=== PATIENT | male | born 1955 | race Hispanic/Latino ===

== ENCOUNTER 2019-12-23 20:02 | Emergency (ER) | payer OTHER ==
[2019-12-23 20:54] LABS: Urine Blood 3+ (NEG); Urine Glucose NEGATIVE (NEG); Urine Protein 1+ (NEG); Urine Specific Gravity 1.015 (1.005-1.030)
--- NOTE | 2019-12-23 21:23 | RAD REPORT ---
EXAM DESCRIPTION: CT - Stone Protocol - 12/23/2019 9:00 pm CLINICAL HISTORY: HEMATURIA COMPARISON: No comparisons TECHNIQUE: Axial 5 mm thick images were obtained without oral or IV contrast. The [id number] span s the entirety of the system including uppermost abdomen and lung bases. All CT scans are performed using dose optimization technique as appropriate and may include automated exposure control or mA/KV adjustment according to patient size. FINDINGS: No hydronephrosis is present and no obstructing ureteral calculi. No suspicious renal mass es. Isodense masses and pyelonephritis are not excluded on a stone protocol CT scan. No significant a drenal finding. Bladder is only partially filled. Irregular lobulated prostate gland is present proje cting into the bladder base. This could be a potential source for hematuria. Tri grown region of a bl adder has a slightly thickened or nodular appearance. Imaged portions of the liver, spleen and pancreas show no suspicious findings on non-contrast imaging . Gallbladder is absent. No biliary tree abnormality. No suspicious bowel findings. Appendix is normal. No active GI process identifiable. No mass or bulky lymphadenopathy. A small fat only umbilical hernia present. Fat filled left inguinal hernia is present. No free air, free fluid or inflammatory stranding. No significant bony abnormality. IMPRESSION: No hydronephrosis, obstructing calculus or acute renal or ureteral finding. Irregular lobulated prostate gland projecting into the bladder base. Trigone region of the bladder wood s a thickened nodular appearance due to the prostate gland. Correlation is needed with PSA values. No acute GI finding. Isodense masses and pyelonephritis are not excluded on stone protocol technique.
[2019-12-23 21:25] LABS: Urine Bacteria <20 /HPF (NONE SEEN); Urine RBC >50 /HPF (NONE SEEN)
[2019-12-23 21:26] LABS: Urine Culture Reflex Order NOT NEEDED
[2019-12-23 21:35] LABS: Absolute Lymphocytes (CBC) 1.7 K/uL (0.7-4.9); Basophils % 0.6 % (0-1.3); Lymphocytes % 25.5 % (15.3-44.8); MPV 9.2 fL (7.6-11.3); RBC Red Blood Cell Count 4.49 M/uL (4.33-5.43)
[2019-12-23 21:43] LABS: Potassium 4.2 mmol/L (3.5-5.1)
--- NOTE | 2019-12-23 21:49 | ER ---
Nurse's Notes [facility] [place] Name: Sanjeev Agee Age: 64 yrs Sex: Male : 1955 Arrival Date: 12/23/2019 Time: 20:04 Bed 6 Private MD: Diagnosis: Hematuria Presentation: 12/22 20:08 Chief complaint: Patient states: noticed blood in urine at around 4:00 pm this afternoon. Pt states Hx of enlarged prostate and bladder infection. Pt denies any pain or fever. Coronavirus screen: Client indicates they have traveled out of the [place] in the last 14 days. Client traveled to: [place] At this time, the client does not indicate any symptoms associated with coronavirus-19. Ebola Screen: Patient negative for fever greater than or equal to 101.5 degrees Fahrenheit, and additional compatible Ebola Virus Disease symptoms Patient denies exposure to infectious person. Initial Sepsis Screen: Does the patient meet any 2 criteria? No. Patient's initial sepsis screen is negative. Does the patient have a suspected source of infection? Yes: Other: blood in urine. Risk Assessment: Do you want to hurt yourself or someone else? Patient reports no desire to harm self or others. Onset of symptoms was December 23, 2019. 20:08 Method Of Arrival: Ambulatory 20:08 Acuity: ALEM 3 Historical: - Allergies: 20:14 No Known Allergies; - Home Meds: 20:14 Unable to obtain [Active]; - PMHx: 20:14 Bladder Infection; Prostate Enlargement; High Cholesterol; Hypertension; GERD; - PSHx: 20:14 Cholecystectomy; - Immunization history:: Adult Immunizations up to date. - Social history:: Smoking status: Patient/guardian denies using alcohol, street drugs. Screenin:15 Abuse screen: Denies threats or abuse. Denies injuries from another. Nutritional screening: No deficits noted. Tuberculosis screening: No symptoms or risk factors identified. Fall Risk None identified. Assessment: 20:36 General: Appears in no apparent distress. comfortable, Behavior is calm, cooperative, rr5 appropriate for age. Pain: Denies pain. Neuro: Level of Consciousness is awake, alert, obeys commands, Oriented to person, place, time, situation. Cardiovascular: Capillary refill < 3 seconds Patient's skin is warm and dry. Respiratory: Airway is patent Respiratory effort is even, unlabored, Respiratory pattern is regular, symmetrical. GI: No signs and/or symptoms were reported involving the gastrointestinal system. : Reports blood in urine. EENT: No signs and/or symptoms were reported regarding the EENT system. Derm: Skin is intact, is healthy with good turgor, Skin temperature is warm. Musculoskeletal: Circulation, motion, and sensation intact. Capillary refill < 3 seconds. 21:00 Reassessment: Patient appears in no apparent distress at this time. Patient is alert, rr5 oriented x 3, equal unlabored respirations, skin warm/dry/pink. awaiting for results. 22:09 Reassessment: Patient appears in no apparent distress at this time. Patient is alert, rr5 oriented x 3, equal unlabored respirations, skin warm/dry/pink. discharge instruction given and explained without complaints made. Patient states symptoms have improved. Vital Signs: 20:08 BP 161 / 85; Pulse 67; Resp 18; Temp 98.5; Pulse Ox 96% ; Weight 87.09 kg; Height 5 ft. 8 in. (172.72 cm); 21:20 BP 149 / 86; Pulse 63; Resp 16; Pulse Ox 98% ; rr5 22:00 BP 141 / 75; Pulse 60; Resp 17; Pulse Ox 99% ; rr5 20:08 Body Mass Index 29.19 (87.09 kg, 172.72 cm) ED Course: 20:04 Patient arrived in ED. cl3 20:08 Balaji Warren is Primary Nurse. wh 20:12 Triage completed. wh 20:15 Arm band placed on right wrist. 20:22 Jimena Alatorre FNP-C is PHCP. kb 20:22 Michael Spears MD is Attending Physician. kb 20:25 Primary Nurse role handed off by Balaji Warren rr5 20:25 Hernan Sarabia, ARTEMIO is Primary Nurse. rr5 20:36 Patient has correct armband on for positive identification. Bed in low position. Call rr5 light in reach. 20:36 No provider procedures requiring assistance completed. rr5 21:00 CT Stone Protocol In Process Unspecified. EDMS 21:15 Inserted saline lock: 20 gauge in left antecubital area, using aseptic technique. rr5 ,using aseptic technique. inserted by balaji ULLOA Blood collected. 21:48 Jaycob Rich MD is Referral Physician. kb 22:09 IV discontinued, intact, bleeding controlled, No redness/swelling at site. Pressure rr5 dressing applied. Administered Medications: No medications were administered Outcome: 21:48 Discharge ordered by . kb 22:09 Discharged to home ambulatory. rr5 22:09 Condition: stable 22:09 Discharge instructions given to patient, Instructed on discharge instructions, follow up and referral plans. Demonstrated understanding of instructions, follow-up care. 22:10 Patient left the ED. rr5 Signatures: Dispatcher [employer] EDNJ Jimena Alatorre, SEMICONDUCTOR EQUIPMENT TECHNICIAN-C SEMICONDUCTOR EQUIPMENT TECHNICIAN-Balaji Garzon Raymond, RN RN rr5 Juventino Early cl3
--- NOTE | 2019-12-23 21:49 | EDPHYS ---
Physician Documentation [facility] Name: Sanjeev Agee Age: 64 yrs Sex: Male : 1955 Arrival Date: 12/23/2019 Time: 20:04 Bed 6 Private MD: ED Physician Michael Spears HPI: 12/22 21:29 This 64 yrs old Male presents to ER via Ambulatory with complaints of Blood In kb Urine. 21:29 The patient presents with urinary symptoms, hematuria. Onset: The symptoms/episode kb began/occurred today. Modifying factors: The symptoms are alleviated by nothing, the symptoms are aggravated by urinating. Associated signs and symptoms: Pertinent positives: hematuria, Pertinent negatives: abdominal pain, constipation, diarrhea, dysuria, fever, nausea, vomiting. Severity of symptoms: At their worst the symptoms were moderate, in the emergency department the symptoms are unchanged. The patient has not experienced similar symptoms in the past. The patient has been recently seen by a physician:. Pt reports blood in his urine that started today. States he had a routine PCP visit this morning, but the blood in urine didn't start until this afternoon. Denies pain or any other symptoms. Historical: - Allergies: 20:14 No Known Allergies; - Home Meds: 20:14 Unable to obtain [Active]; - PMHx: 20:14 Bladder Infection; Prostate Enlargement; High Cholesterol; Hypertension; GERD; - PSHx: 20:14 Cholecystectomy; - Immunization history:: Adult Immunizations up to date. - Social history:: Smoking status: Patient/guardian denies using alcohol, street drugs. ROS: 21:29 Constitutional: Negative for fever, chills, and weight loss, Cardiovascular: Negative kb for chest pain, palpitations, and edema, Respiratory: Negative for shortness of breath, cough, wheezing, and pleuritic chest pain, Abdomen/GI: Negative for abdominal pain, nausea, vomiting, diarrhea, and constipation, Back: Negative for injury and pain, MS/Extremity: Negative for injury and deformity, Skin: Negative for injury, rash, and discoloration, Neuro: Negative for headache, weakness, numbness, tingling, and seizure. 21:29 : Positive for hematuria, Negative for injury or acute deformity, urinary symptoms, urinary frequency, small amounts, pelvic pain, flank pain, burning with urination, difficulty urinating, bladder incontinence, foul smelling urine, penile discharge, penile pain, testicular pain Exam: 21:29 Constitutional: This is a well developed, well nourished patient who is awake, alert, kb and in no acute distress. Head/Face: Normocephalic, atraumatic. Chest/axilla: Normal chest wall appearance and motion. Nontender with no deformity. No lesions are appreciated. Cardiovascular: Regular rate and rhythm with a normal S1 and S2. No gallops, murmurs, or rubs. Normal PMI, no JVD. No pulse deficits. Respiratory: Lungs have equal breath sounds bilaterally, clear to auscultation and percussion. No rales, rhonchi or wheezes noted. No increased work of breathing, no retractions or nasal flaring. Abdomen/GI: Soft, non-tender, with normal bowel sounds. No distension or tympany. No guarding or rebound. No evidence of tenderness throughout. Skin: Warm, dry with normal turgor. Normal color with no rashes, no lesions, and no evidence of cellulitis. MS/ Extremity: Pulses equal, no cyanosis. Neurovascular intact. Full, normal range of motion. Neuro: Awake and alert, GCS 15, oriented to person, place, time, and situation. Cranial nerves II-XII grossly intact. Motor strength 5/5 in all extremities. Sensory grossly intact. Cerebellar exam normal. Normal gait. Vital Signs: 20:08 BP 161 / 85; Pulse 67; Resp 18; Temp 98.5; Pulse Ox 96% ; Weight 87.09 kg; Height 5 ft. 8 in. (172.72 cm); 21:20 BP 149 / 86; Pulse 63; Resp 16; Pulse Ox 98% ; rr5 22:00 BP 141 / 75; Pulse 60; Resp 17; Pulse Ox 99% ; rr5 20:08 Body Mass Index 29.19 (87.09 kg, 172.72 cm) MDM: 20:22 Patient medically screened. kb 21:29 Data reviewed: vital signs, nurses notes. Data interpreted: Pulse oximetry: on room air kb is 96 %. Interpretation: normal. 21:46 Counseling: I had a detailed discussion with the patient and/or guardian regarding: the kb historical points, exam findings, and any diagnostic results supporting the discharge/admit diagnosis, lab results, radiology results, the need for outpatient follow up, a urologist, to return to the emergency department if symptoms worsen or persist or if there are any questions or concerns that arise at home. 12/22 20:23 Order name: Urine Microscopic Only; Complete Time: 21:27 kb 12/22 20:29 Order name: Urine Dipstick--Ancillary (enter results); Complete Time: 20:58 mw2 12/22 20:23 Order name: Urine Dipstick-Ancillary (obtain specimen); Complete Time: 20:30 kb 12/22 20:47 Order name: CBC with Diff; Complete Time: 21:40 kb 12/22 20:47 Order name: Basic Metabolic Panel; Complete Time: 21:46 kb 12/22 20:47 Order name: CT Stone Protocol; Complete Time: 21:27 kb Administered Medications: No medications were administered Disposition: 12/23 02:59 Co-signature as Attending Physician, Michael Spears MD. [email or web address] Disposition: 12/23/19 21:48 Discharged to Home. Impression: Hematuria. - Condition is Stable. - Discharge Instructions: Hematuria, Adult. - Medication Reconciliation Form, Thank You Letter, Antibiotic Education, Prescription Opioid Use form. - Follow up: Jaycob Rich; When: 2 - 3 days; Reason: Recheck today's complaints. Signatures: Dispatcher [employer] EDJimena Benavidez, UNIVERSITY PROFESSOR-C UNIVERSITY PROFESSOR-Ckb Balaji Warren Raymond RN RN rr5 Michael Spears MD MD [email or web address] Corrections: (The following items were deleted from the chart) 12/22 22:10 21:48 12/23/2019 21:48 Discharged to Home. Impression: Hematuria. Condition is Stable. rr5 Discharge Instructions: Hematuria, Adult. Forms are Medication Reconciliation Form, Thank You Letter, Antibiotic Education, Prescription Opioid Use. Follow up: Jaycob Rich; When: 2 - 3 days; Reason: Recheck today's complaints. kb
[2019-12-23 23:15] VITALS: TEMP 98.5
[2019-12-23 23:17] VITALS: BP 141/75; O2SAT 99
== END 2019-12-23 22:10 | disposition home or self-care (01) ==
LOC: ER 20:02
DX: R31.9 Hematuria, unspecified (principal); I10 Essential (primary) hypertension
CPT/HCPCS: 36415; 74176; 76377; 80048; 81003; 81015; 85025; 99283